=== PATIENT | male | born 1970 | race Caucasian/White ===

== ENCOUNTER 2022-03-07 11:34 | Emergency (ER) | payer SELFPAY ==
[2022-03-07 13:24] LABS: ACETAMINOPHEN 0 ug/mL (10-30); ESTIMATED GFR > 60 mL/min (>60)
== END 2022-03-07 19:45 ==
LOC: JD.ED 11:34
DX: R45.851 Suicidal ideations (principal); F32.9 Major depressive disorder, single episode, unspecified; Z20.822 Contact with and (suspected) exposure to COVID-19; Z79.899 Other long term (current) drug therapy
CPT/HCPCS: 36415; 80053; 80143; 80179; 80306; 80307; 81003; 83735; 84443; 85025; 93005; 99285-25; U0002